=== PATIENT | male | born 2000 | race Caucasian/White ===

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

== ENCOUNTER 2022-06-10 15:26 | Emergency (ER) | payer BC ==
[~2022-06-10] VITALS: Wt 60.3 kg
[~2022-06-10 15:26] MED LIST changes: +TESSALON PERLE100 MG PO; +ZITHROMAX250 MG PO
[2022-06-10] MEDS ORDERED: Motrin,Rufen800 MG PO (18:30)
[2022-06-10] MEDS ORDERED: MEDROL DOSEPAK4 MG PO (18:32)
== END 2022-06-10 18:28 | disposition home or self-care (01) ==
LOC: ED 15:26
DX: S49.91XA Unspecified injury of right shoulder and upper arm, initial encounter (principal); Z88.0 Allergy status to penicillin; X50.1XXA Overexertion from prolonged static or awkward postures, initial encounter; Y93.89 Activity, other specified; Y92.89 Other specified places as the place of occurrence of the external cause; Y99.8 Other external cause status

== ENCOUNTER → 2022-08-22 | Day surgery (SDC) | payer BC ==
[2022-08-19 14:31] VITALS: BP 99/43
[~2022-08-22] VITALS: Ht 162.5 cm; Wt 60.3 kg
[~2022-08-22] MED LIST changes: +HYDROCODONE-AC1 EAC1 PO; +MEDROL DOSEPAK4 MG PO; +Motrin,Rufen800 MG PO
[2022-08-22 06:58] VITALS: BP 111/52
[2022-08-22 09:27] VITALS: BP 129/35
[2022-08-22 09:42] VITALS: BP 105/48
[2022-08-22 09:57] VITALS: BP 105/47
[2022-08-22 10:12] VITALS: BP 106/58
[2022-08-22 10:27] VITALS: BP 115/55
== END | disposition home or self-care (01) ==
LOC: SDC 08-19 14:00
PROVIDERS: ATTEND Orthopaedic Surgery
DX: S46.291A Other injury of muscle, fascia and tendon of other parts of biceps, right arm, initial encounter (principal); M75.81 Other shoulder lesions, right shoulder; Z88.0 Allergy status to penicillin; X50.0XXA Overexertion from strenuous movement or load, initial encounter; X50.9XXA Other and unspecified overexertion or strenuous movements or postures, initial encounter; Y93.89 Activity, other specified; Y92.89 Other specified places as the place of occurrence of the external cause; Y99.8 Other external cause status

== ENCOUNTER → 2022-09-04 | Outpatient (CLI) | payer BC | END | disposition home or self-care (01) | LOC: ORTHO 00:27 | PROVIDERS: ATTEND Orthopaedic Surgery | DX: S46.291A Other injury of muscle, fascia and tendon of other parts of biceps, right arm, initial encounter (principal); M75.81 Other shoulder lesions, right shoulder; X58.XXXA Exposure to other specified factors, initial encounter; Y93.89 Activity, other specified; Y92.89 Other specified places as the place of occurrence of the external cause; Y99.8 Other external cause status ==

== ENCOUNTER 2025-05-30 21:55 | Emergency (ER) | payer SELFPAY ==
[~2025-05-30] VITALS: Ht 165.1 cm; Wt 56.7 kg
== END 2025-05-30 23:54 | disposition left against medical advice (07) ==
LOC: ED 21:55
DX: T63.441A Toxic effect of venom of bees, accidental (unintentional), initial encounter (principal); Z53.21 Procedure and treatment not carried out due to patient leaving prior to being seen by health care provider; Y92.89 Other specified places as the place of occurrence of the external cause